=== PATIENT | male | born 1985 ===

== ENCOUNTER 2018-10-06 16:50 | Emergency (ER) | payer BC, OTHER ==
--- NOTE | 2018-10-06 16:57 | PDOC ---
Rapid Medical Evaluation Medical Evaluation: Allergies Allergy/AdvReac Type Severity Reaction Status Date / Time No Known Allergies Allergy Verified 10/06/18 16:53 10/06/18 16:53 Pt presents to the ER for a L second finger infection. States that it started one week ago. He popped it on his own on Wednesday and he got drainage out. No abx on board Exam: 0.5cm round fluctuance tot he L dorsal 2nd digit Orders: Hand x-ray Pt to proceed to the ER for further evaluation Discharge Disposition - Diagnosis Finger infection - Referrals - Patient Instructions - Post Discharge Activity
[2018-10-06 16:58] VITALS: BP 141/90; PULSE 84; TEMP 97.9; BMI 25.5
[2018-10-06] MEDS ORDERED: CLINDAMYCIN 600MG PREMIX IVPB 600 MG/50 ML BAG IVPB ONE ×2 (17:26→17:28)
--- NOTE | 2018-10-06 17:34 | PDOC ---
History of Present Illness - General Chief Complaint: Abscess Boil Stated Complaint: LEFT INDEX INJURY Time Seen by Provider: 10/06/18 17:20 History Source: Patient Exam Limitations: No Limitations - History of Present Illness Initial Comments: 10/06/18 16:19 States was bitten to dorsum of left index finger last weekend, 6 days ago. Was uncertain as to type of insect but states by Wednesday had a swollen, tender and fluctuant lesion to the dorsum of his proximal phalanx of left index finger. States she used a needle and opened this blister draining a significant amount of purulent drainage. It's perform this procedure 3 more times over the course of 2 days. States woke up today with a worsened red painful and continue draining lesion. Denies fever, denies any streaking, denies any knuckle tenderness. Was told by his PMD to come to emergency department today Timing/Duration: reports: getting worse Severity: Yes: moderate Location: reports: hands Associated Symptoms: reports: blisters, change in skin texture. denies: fever, flushing Past History - Travel Traveled outside of the country in the last 30 days: No Close contact w/someone who was outside of country & ill: No - Past Medical History Allergies/Adverse Reactions: Allergies Allergy/AdvReac Type Severity Reaction Status Date / Time No Known Allergies Allergy Verified 10/06/18 16:53 Home Medications: Ambulatory Orders Clindamycin [Cleocin -] 300 mg PO TID #21 capsule 10/06/18 COPD: No - Immunization History Immunization Up to Date: No - Suicide/Smoking/Psychosocial Hx Smoking History: Current every day smoker Have you smoked in the past 12 months: Yes Number of Cigarettes Smoked Daily: 0 Information on smoking cessation initiated: Yes Hx Alcohol Use: Yes Drug/Substance Use Hx: Yes (marijuana) Review of Systems - Review of Systems Able to Perform ROS?: Yes Is the patient limited [place] proficient: Yes Constitutional: Yes: Symptoms Reported, See HPI. No: Fever HEENTM: No: Symptoms Reported Respiratory: No: Symptoms reported Musculoskeletal: Yes: Symptoms Reported, See HPI, Joint Swelling Neurological: No: Symptoms reported All Other Systems: Reviewed and Negative *Physical Exam - Vital Signs Last Vital Signs Temp Pulse Resp BP Pulse Ox 97.9 F 84 18 141/90 100 10/06/18 16:53 10/06/18 16:53 10/06/18 16:53 10/06/18 16:53 10/06/18 16:53 - Physical Exam General Appearance: Yes: Nourished, Appropriately Dressed, Apparent Distress HEENT: positive: [place], Normal ENT Inspection, TMs Normal, Pharynx Normal Neck: positive: Supple. negative: Tender, Lymphadenopathy (R), Lymphadenopathy (L) Respiratory/Chest: positive: Lungs Clear Musculoskeletal: positive: Other Extremity: positive: Tender, Erythema. negative: Normal Capillary Refill Integumentary: positive: Erythema (erythema to proximal phalanx of left index finger with denuded wound/ drainage with purulent drianage expressed. FROM with no pain on flexion and extension against resisitance , NO MCP tenderness or streaking noted. 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 If labs WNL and symptoms maintain or resolve will Dc with F/U tomorrow here for wound check. Medical Decision Making - Medical Decision Making 18:23 finger soaked in warm water with Betadine, able to express some additional amount of purulent drainage and wound culture obtained. Started and given first dose of clindamycin 600 mg IV here. Laboratory work relatively normal and after antibiotics and soaking completed finger appears to be mildly improved. Patient agrees will take by mouth antibiotics at home, soak finger 3- 4 times a day and re-wrapped with bacitracin, also agrees to return here tomorrow for wound check unless symptoms worsen throughout the night. *DC/Admit/Observation/Transfer Diagnosis at time of Disposition: Finger infection - Discharge Dispostion Disposition: HOME Condition at time of disposition: Stable Decision to Admit order: No - Prescriptions Prescriptions: Clindamycin [Cleocin -] 300 mg PO TID #21 capsule - Referrals Referrals: Zackary Coates [facility] [Primary Care Provider] - - Patient Instructions Printed Discharge Instructions: DI for Incision and Drainage of a Skin Abscess Additional Instructions: Rest, keep area elevated. Avoid strenuous activity or exercise until wound is healed Use hot soaks to area to bring more blood to the surface and encourage drainage May change dressings as needed to keep clean - Allow water from shower to wash area thoroughly for 2-3 minutes, and pat dry upon exit of shower and replace dressing. Change his dressing daily until the wound is completely healed. May use Tylenol or Motrin for mild pain relief Use stronger medications as directed and prescribed Continue all medications as prescribed Followup with private physician in 2-3 days for wound check Return to emergency Department for worsening swelling, pain, redness, fevers as needed - Post Discharge Activity Forms/Work/School Notes: Back to Work
[2018-10-06 18:01] LABS: BASO % 0.3 % (0-2.0); HEMATOCRIT 47.9 % (35.4-49); HEMOGLOBIN 16.4 GM/dL (11.7-16.9); MCH 30.8 pg (25.7-33.7); MCHC 34.2 g/dl (32.0-35.9); MEAN CELL VOLUME 90.2 fl (80-96); MEAN PLT VOLUME 10.2 fl (7.5-11.1); MONO % 8.6 % (3.8-10.2); NEUT % 74.1 % (42.8-82.8); PLATELET COUNT 251 K/MM3 (134-434); RBC 5.31 M/mm3 (4.00-5.60); WHITE BLOOD COUNT 11.5 K/mm3 (4.0-10.0)
[2018-10-06] MEDS ORDERED: BACITRACIN 15 GM TUBE TOPICAL OINTMENT ONE (18:08)
[2018-10-06 18:23] LABS: ALBUMIN 4.4 g/dl (3.4-5.0); BILIRUBIN,TOTAL 0.6 mg/dL (0.2-1); BLOOD UREA NITROGEN 14.9 mg/dL (7-18); CALCIUM 9.3 mg/dL (8.5-10.1); POTASSIUM 4.2 mmol/L (3.5-5.1); TOT PROT 7.7 g/dl (6.4-8.2)
== END 2018-10-06 18:44 | disposition home or self-care (01) ==
LOC: JERFT 16:50
PROC: 0H9GXZZ Drainage of Left Hand Skin, External Approach (ICD-10-PCS; principal; 2018-10-06)
PROC: 3E03329 Introduction of Other Anti-infective into Peripheral Vein, Percutaneous Approach (ICD-10-PCS; 2018-10-06)
DX: L08.9 Local infection of the skin and subcutaneous tissue, unspecified (principal); F17.210 Nicotine dependence, cigarettes, uncomplicated
CPT/HCPCS: 36415; 73130-TC-LT-FY; 80053; 85025; 87070; 87186; 87205; 99282-25